=== PATIENT | female | born 1990 | race Caucasian/White ===

== ENCOUNTER 2020-10-21 23:19 | Emergency (ER) | payer OTHER, SELFPAY ==
[2020-10-21 23:38] VITALS: BP 135/67; PULSE 79; RESP 16; TEMP 37.3; O2SAT 97; BMI 44.6
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
[2020-10-21] MEDS: NaPROXEN 500 MG TABLET PO (23:50)
== END 2020-10-22 00:04 | disposition home or self-care (01) ==
PROVIDERS: Emergency Provider Emergency Medicine
DX: S39.012A Strain of muscle, fascia and tendon of lower back, initial encounter (principal); V43.62XA Car passenger injured in collision with other type car in traffic accident, initial encounter; Y93.9 Activity, unspecified; Y92.410 Unspecified street and highway as the place of occurrence of the external cause; Z79.899 Other long term (current) drug therapy
CPT/HCPCS: 99283

== ENCOUNTER 2022-07-27 19:00 | Emergency (ER) | payer MEDICAID, SELFPAY ==
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
== END 2022-07-27 23:23 | disposition left against medical advice (07) ==
PROVIDERS: Emergency Provider Emergency Medicine
DX: K08.89 Other specified disorders of teeth and supporting structures (principal)

== ENCOUNTER 2022-07-28 19:34 | Emergency (ER) | payer MEDICAID, SELFPAY ==
[2022-07-28 19:43] VITALS: BP 140/67; PULSE 75; RESP 18; TEMP 37; O2SAT 98; BMI 47.8
[2022-07-28 20:51] LABS: COVID-19 Test Negative (Negative)
--- NOTE | 2022-07-28 21:08 | ED.GENADULT ---
HPI - General Adult General Chief complaint: Upper Respiratory Symptoms Stated complaint: coughing/cp/headache Time Seen by Provider: 07/28/22 21:01 Source: patient and EMS Mode of arrival: EMS Limitations: no limitations History of Present Illness HPI narrative: Patient comes to the emergency room complaining headache, nasal congestion, cough and right itchy ear for several days. Patient denies any fever or chills. Patient states that all of symptoms and making her feel very anxious. Patient states that she has not been immunized for COVID-19. Denies abdominal pain, chest pain or UTI symptoms Related Data Previous Rx's Medication Instructions Recorded naproxen 500 mg tablet 500 mg PO Q8H PRN pain #20 tabs 10/21/20 acetic acid 2 % ear solution 3 drp otic (ear) left Q6H #15 mL 07/28/22 ketorolac 10 mg tablet 10 mg PO BID PRN pain 5 days #7 07/28/22 tabs Allergies Allergy/AdvReac Type Severity Reaction Status Date / Time amoxicillin [AMOXICILLIN] Allergy Intermediate HIVES Verified 10/21/20 23:38 Review of Systems Review of Systems: Constitutional : No Weight loss, No Fever, No Chills, No Night Sweats, No Fatigue, No Malaise ENT/Mouth : No Hearing loss, No Ear Pain, complaining of Nasal Congestion, No Sinus Pain, No Hoarseness, No sore throat, No Rhinorrhea, No Swallowing Difficulty, complaining of right ear itching Eyes: No Eye Pain, No Swelling, No Redness, No Foreign Body, No Discharge, No Vision Changes Cardiovascular : No Chest Pain, No SOB, No Dyspnea on Exertion, No Orthopnea, No Edema, No Palpitations Respiratory : No Cough, No Sputum, No Wheezing, No Smoke Exposure, No Dyspnea Gastrointestinal : No Nausea, No Vomiting, No Diarrhea, No Constipation, No abdominal Pain, No Hematochezia, No Melena Genitourinary : no irregular bleeding, No Dysuria, No Urinary Frequency, No Hematuria, No Urinary Incontinence, No Urgency, No Flank Pain, No Urinary Flow Changes, No Hesitancy Musculoskeletal : No joint pain, No Myalgias, No Joint Swelling Skin : No Skin Lesions, No rash Neuro : No Weakness, No Numbness, No Paresthesias, No Loss of Consciousness, No Dizziness, complaining of Headache Psych : No Anxiety/Panic, No Depression, No SI/HI/AH/VH, No Social Issues, Heme/Lymph: No Bruising, No Bleeding,No Lymphadenopathy Endocrine : No Polyuria, No Polydipsia, No Temperature Intolerance [facility] Past Medical History Medical History Anxiety History of hemorrhage Surgical History History of removal of pigmented skin lesion Social History Social History (Updated 10/21/20 @ 23:45 by Mu Mesa DO) Household Members: Family Advance Directives: No Advance Directives Information Provided: No Physical Exam ED Vital Signs: Vital Signs - 24 hr 07/28/22 19:43 Temperature 98.6 F Pulse Rate 75 Respiratory Rate 18 Blood Pressure 140/67 H Pulse Oximetry 98 Oxygen Delivery Method Room Air BMI result Body Mass Index 47.8 Const Other: Appearance: Alert. Oriented X3. No acute distress. Eyes: Pupils equal, round and reactive to light. ENT: Pharynx normal. right ears has mild whitish discharge, the tympanic membrane itself is clear, no swelling in the ear canal, left ear within normal limits Neck: Normal inspection. Neck supple. No lymph nodes noted. No crepitus CVS: Normal heart rate and rhythm. Pulses normal. Normal S1 and S2 Respiratory: No respiratory distress. Breath sounds normal. No Wheezing. No rales Abdomen: Soft and nontender. No rigidity. No distention. Skin: Skin warm and dry. Normal skin color. Normal skin turgor. Extremities: No lower extremity edema. No Lacerations. No Rash Neuro: Oriented X 3. No motor deficit. No sensory deficit. Moving all extremities. No slurred speech. CN 2 through 12 grossly intact Psych: calm, cooperative, normal affect Course Course Course Narrative: patient tested negative for COVID-19. Lungs are clear, oxygen saturation 90% on room air. Patient likely has a viral syndrome. Patient was given ketorolac, metoclopramide and diphenhydramine for her headache. Medical Decision Making Lab Data Labs: Lab Results 07/28/22 Range/Units 19:54 COVID-19 (SUSHIL) Negative (Negative) COVID-19 Clin Com See Note Discharge Plan Discharge Clinical Impression: Acute viral syndrome, Headache, Itching of ear Patient Disposition: Home, Self-Care Instructions: Acute Headache (ED), Viral Syndrome (ED) Additional Instructions: Please follow-up with your primary care physician tomorrow. If you have any worsening or new symptoms, please return to the emergency room or call 911 Prescriptions: New ketorolac 10 mg tablet 10 mg PO BID PRN (Reason: pain) 5 Days Qty: 7 0RF Rx Instructions: do not use this medication with naproxen, Aleve, or any NSAIDs only use Tylenol if needed acetic acid 2 % solution 3 drp otic (ear) left Q6H Qty: 15 0RF Rx Instructions: apply to (cotton) wick; replace wick every 24 hours No Action naproxen 500 mg tablet 500 mg PO Q8H PRN (Reason: pain) Qty: 20 0RF
[2022-07-28] MEDS: Ketorolac Tromethamine 30 MG/ML VIAL IVPUSH (21:20)
[2022-07-28] MEDS: diphenhydrAMINE HCL 50 MG/ML VIAL 25 MG IVPUSH (21:21)
[2022-07-28] MEDS: Metoclopramide HCl 10 MG/2 ML VIAL IVPUSH (21:22)
== END 2022-07-28 22:22 | disposition home or self-care (01) ==
PROVIDERS: Emergency Provider Emergency Medicine
DX: B34.9 Viral infection, unspecified (principal); R51.9 Headache, unspecified; H93.8X1 Other specified disorders of right ear; Z20.822 Contact with and (suspected) exposure to COVID-19
CPT/HCPCS: 87635; 96374; 96375; 99283; 99284; J1200; J1885; J2765

== ENCOUNTER 2023-12-26 12:13 | Outpatient (REF) | payer MEDICAID, SELFPAY ==
[2023-12-27 13:10] LABS: Influenza A PCR NEGATIVE (Negative); Influenza B PCR NEGATIVE (Negative); Resp Syncy Virus RNA Qual PCR NEGATIVE (Negative); SARS COV2 PCR INHOUSE NEGATIVE (Negative)
== END 2023-12-26 12:14 | disposition home or self-care (01) ==
LOC: HO.LNP 12:13
PROVIDERS: Visit Provider Nurse Practitioner Primary Care
DX: J06.9 Acute upper respiratory infection, unspecified (principal); Z11.52 Encounter for screening for COVID-19
CPT/HCPCS: 0241U

== ENCOUNTER 2023-12-26 15:57 | Outpatient (AMB) | payer MEDICAID, SELFPAY ==
--- NOTE | 2023-12-26 16:05 | AM.OFFWIN_ITS ---
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 Pt states she also had a fever last night. Pt states she test negative for covid using a home test. Patient Tobacco Use Status: Current everyday Tobacco user Allergies amoxicillin [AMOXICILLIN] Allergy (Intermediate, Verified 12/26/23 16:11) HIVES Do you need a note to return to daycare/school/sports/work: No HPI HPI Comments History of Present Illness Details Patient is a 33-year-old female in for a sick visit. She states that yesterday she woke up with a sore throat, that was so bad it was difficult for her to eat or drink. Denies sick contacts. Has use [id number] medication with little relief. She has no significant past medical history. Denies chest pain, shortness a breath, dizziness, and numbness, nausea, vomiting, diarrhea. [facility] Medical History Anxiety History of hemorrhage Surgical History History of removal of pigmented skin lesion Social History (Updated 10/21/20 @ 23:45 by Mu Mesa DO) Household Members: Family Patient Tobacco Use Status: Current everyday Tobacco user Review of Systems Const All systems reviewed & are unremarkable except as noted in HPI and below ENT Reports sore throat Physical Exam Vital Signs: Last Vital Signs Temp 98.7 F 12/26/23 16:08 Pulse 90 12/26/23 16:08 BP 110/78 12/26/23 16:08 Pulse Ox 96 12/26/23 16:08 Oxygen Delivery Method Room Air 12/26/23 16:08 BMI result Body Mass Index 52.2 Const Other: Appearance: Alert.? Oriented X3.? No acute distress.? Eyes: Pupils equal, round and reactive to light.? ENT: Pharynx tonsilar exudate, tonsils +2, erythema.?TM intact and pearly pearson left side. Earwax blocking visualization right side. Neck: Normal inspection.? Neck supple.?Full ROM. CVS: Normal heart rate and rhythm.? Pulses normal.? Respiratory: No respiratory distress.? Breath sounds normal.? Neuro: Oriented X 3.? No motor deficit.? No sensory deficit. CN 2-12 intact Results AMB Rapid Strep AMB Rapid Strep Negative Last Edit by Candice Gutierrez CMA on 12/26/23 16:28 Results Reviewed Results Reviewed: Laboratory Last Values Strep Scn Rapid Clinic Negative 12/26/23 16:27 Assessment & Plan Assessment & Plan (1) Strep throat: Comment: Will give patient clindamycin and prednisone to be taken as directed. Patient has been educated on signs of worsening symptoms and when to report back to the walk-in or when to present to the ED. Patient states she understands. Code(s): J02.0 - Streptococcal pharyngitis Plan: Take your medications as prescribed. If you were prescribed antibiotics today, it is important that you take your medication to their entirety, do not skip any doses, do not finish them early. Follow-up with your primary care provider this week. Return to the emergency department with new or worsening symptoms. Such as fevers, chills, chest pain, shortness of breath, nausea, vomiting, dizziness, headache, vision changes, lethargy In case of emergency call 911 Plan Follow-up with PCP. Orders: Orders SARS-CoV2/FLU/RSV Today J06.9 - Acute upper respiratory infection, unspecified MICHELA Dunham AMB Rapid Strep Screen Today Z13.9 - Encounter for screening, unspecified Rigoberto Vaughn MD Medications: New clindamycin HCl 300 mg PO TID 30 caps 0RF MICHELA Dunham prednisone 20 mg PO BID 10 tabs 0RF MICHELA Dunham Coding Level of Care Code Est Pt Level 3 (65557) Diagnoses Strep throat J02.0 Time Spent (min) 20
[2023-12-26 16:08] VITALS: BP 110/78; PULSE 90; TEMP 37.1; O2SAT 96; BMI 52.2
== END 2023-12-26 16:37 | disposition home or self-care (01) ==
PROVIDERS: Visit Provider Nurse Practitioner Primary Care
DX: J02.9 Acute pharyngitis, unspecified (principal)
CPT/HCPCS: 87880; 99213

== ENCOUNTER 2024-03-07 23:56 | Emergency (ER) | payer OTHER, SELFPAY ==
[2024-03-07 23:59] VITALS: BP 149/92; PULSE 113; RESP 18; TEMP 37.1; O2SAT 97; BMI 49.9
[2024-03-08 00:06] VITALS: BP 133/73; PULSE 110; RESP 16; TEMP 37.2; O2SAT 95
--- NOTE | 2024-03-08 00:47 | ED.GENADULT ---
HPI - General Adult General Chief complaint: Skin/Abscess/Foreign Body Stated complaint: bump/abscess? on head, hurts to touch Time Seen by Provider: 03/08/24 00:41 Source: patient, RN notes reviewed and old records reviewed Mode of arrival: ambulatory Limitations: no limitations History of Present Illness HPI narrative: 33-year-old female presents for evaluation of ?a bump on my head. ? Patient reports that she just returned from vacation in [place]. She states that she noticed a bump to the top of her head yesterday. She felt as though ?it popped and drained. ? It does not hurt unless she touches the area She denies any fevers or chills. The patient is not a diabetic Related Data Previous Rx's ?Medication ?Instructions ?Recorded clindamycin HCl 300 mg capsule 300 mg PO TID #30 caps 12/26/23 prednisone 20 mg tablet 20 mg PO BID #10 tabs 12/26/23 cephalexin 500 mg capsule 500 mg PO QID #28 caps 03/08/24 Allergies Allergy/AdvReac Type Severity Reaction Status Date / Time amoxicillin [AMOXICILLIN] Allergy Intermediate HIVES Verified 03/08/24 00:01 Review of Systems Constitutional: Constitutional: Denies chills and Denies fever(s) Integumentary/Breasts: Skin/Breast: Reports erythema and Denies wounds PMFSH Past Medical History Medical History Anxiety History of hemorrhage Surgical History History of removal of pigmented skin lesion Social History Social History (Updated 10/21/20 @ 23:45 by Mu Mesa DO) Household Members: Family Patient Tobacco Use Status: Current everyday Tobacco user Advance Directives: No Advance Directives Information Provided: No Physical Exam ED Vital Signs: Vital Signs - 24 hr 03/07/24 23:59 03/08/24 00:06 03/08/24 00:55 Temperature 98.8 F 98.9 F 98.9 F Pulse Rate 113 H 110 H 110 H Respiratory Rate 18 16 16 Blood Pressure 149/92 H 133/73 133/73 Pulse Oximetry 97 95 95 Oxygen Delivery Method Room Air Room Air Room Air BMI result Body Mass Index 49.9 Const General: healthy appearing, comfortable, no acute distress, alert and awake Nutritional Appearance: well nourished Orientation/consciousness: patient oriented x3 HENMT Head: Yes normocephalic and Yes atraumatic Eyes Eyelids: Yes eyelids normal Conjunctivae: conjunctivae normal Sclerae: sclerae normal Corneas: corneas normal Pupils: Equal, round and reactive pupils present EOM: EOMs intact bilaterally Neck Neck: Yes full ROM Resp Effort & Inspection: normal respiratory effort, able to speak in complete sentences and not labored Skin Other: Patient has an approximately 1.5-2 cm area of erythema with induration to the top of the scalp just right of center. There is a small central opening with some dry drainage around it. No fluctuance. No active drainage when squeezing the area. General skin exam: elasticity normal Neuro General: patient oriented x3 Cranial nerves: Yes Equal, round and reactive pupils present and Yes Bilaterally intact EOM present Cognition (Neuro): normal cognition Extrem Other: Moving all extremities well without any obvious deformities Medications Administered Discontinued Medications Generic Name Dose Route Start Last Admin Trade Name Freq PRN Reason Stop Dose Admin Cephalexin HCl 500 mg 03/08/24 00:47 03/08/24 00:52 Cephalexin 500 Mg Capsule PO 03/08/24 00:48 500 mg ONCE ONE Administration Medical Decision Making Medical Decision Making [facility] Narrative: Patient has a small abscess/cellulitis that is off of her scalp. There is just 1 area, so less likely to be folliculitis. Will treat with cephalexin 4 times daily for 7 days as well as warm compresses. There does not appear to be any fluctuance amenable to incision and drainage Differential Diagnosis Differential Diagnoses: The differential diagnosis associated with the presentation includes Abscess Cellulitis Dermatitis Folliculitis Discharge Plan Discharge Clinical Impression: Cellulitis and abscess of head Patient Disposition: Home, Self-Care Instructions: Abscess (ED) Additional Instructions: [place] to have a minor skin infection to the top of her head. Take cephalexin 4 times daily for the next 7 days Apply warm compresses to the area every 4 hours for 10-15 minutes Return for new or worsening symptoms, especially fevers Prescriptions: New cephalexin 500 mg capsule 500 mg PO QID Qty: 28 0RF No Action clindamycin HCl 300 mg capsule 300 mg PO TID Qty: 30 0RF prednisone 20 mg tablet 20 mg PO BID Qty: 10 0RF Interventions: ED Discharge Assessment Last Done: 03/08/24 00:55 Discharge Date/Time: 03/08/24 00:56 Print Language: Croatian
[2024-03-08] MEDS: cephALEXin 500 MG CAPSULE PO (00:52)
[2024-03-08 00:55] VITALS: BP 133/73; PULSE 110; RESP 16; TEMP 37.2; O2SAT 95
== END 2024-03-08 00:56 | disposition home or self-care (01) ==
PROVIDERS: Emergency Provider Internal Medicine
DX: L02.811 Cutaneous abscess of head [any part, except face] (principal); L03.811 Cellulitis of head [any part, except face]; Z88.0 Allergy status to penicillin
CPT/HCPCS: 99283